=== PATIENT | male | born 1980 | race Caucasian/White ===

== ENCOUNTER 2020-11-19 15:03 | Outpatient (CLI) | payer OTHER | END 2020-11-19 15:04 | disposition home or self-care (01) | LOC: COV 15:03 | PROVIDERS: ATTEND Family Medicine | DX: R53.83 Other fatigue (principal); J02.9 Acute pharyngitis, unspecified; Z20.828 Contact with and (suspected) exposure to other viral communicable diseases ==

== ENCOUNTER 2022-11-11 13:39 | Outpatient (CLI) | payer OTHER ==
--- NOTE | 2022-11-11 15:16 | Ultrasound Report ---
PROCEDURE: Testicle INDICATIONS: Bilateral testicular pain, right greater than left. Mass. TECHNIQUE: Real-time scanning was performed of the scrotum and testicles, with image documentation. Color and p ulse Doppler interrogation was performed of both testicles. COMPARISON: None. FINDINGS: Right: Right testicle measures 4.1 x 2 x 2.9 cm. Overall echotexture is homogenous. Color and spectra l flows are documented. No hydrocele. Epididymal head cyst versus spermatocele measuring up to 12 mm. Normal appearance of the epididymis otherwise, which is larger than the left side, probably chronic. Varicocele is present, possibly thrombosed. Possible small right scrotolith about 2 mm. Left: Left testicle measures 4.1 x 1.9 x 2.7 cm. Echotexture is homogenous. Color and spectral flows are documented. No hydrocele. Left epididymis appears smaller than the right, probably chronic. Small epididymal head cyst measuring 4 x 3 mm. There is a left varicocele. IMPRESSION: Bilateral varicoceles. Bilateral epididymal head cysts, larger on the right. No evidence of acute torsion. No increased vascularity to suggest epididymitis. Reviewed by: Michael Hensley MD on 11/11/2022 2:15 PM [place] Approved by: Michael Hensley MD on 11/11/2022 2:15 PM [place] Station ID: [id number]
== END 2022-11-11 13:40 | disposition home or self-care (01) ==
LOC: DI 13:39
PROVIDERS: ATTEND Registered Nurse
DX: I86.1 Scrotal varices (principal); N50.3 Cyst of epididymis

== ENCOUNTER 2022-11-13 09:21 | Outpatient (CLI) | payer OTHER ==
[2022-11-13 14:57] LABS: BASOPHILS % (AUTO) 0.8 %; EOSINOPHILS # (AUTO) 0.1 10^3/uL (0.0-0.7); EOSINOPHILS % (AUTO) 3.4 %; HCT - HEMATOCRIT 45.7 % (42.0-52.0); HGB - HEMOGLOBIN 15.3 g/dL (14.0-18.0); LYMPHOCYTES % (AUTO) 29.5 %; MEAN CORPUSCULAR HEMOGLOBIN 28.7 pg (27.0-31.0); MEAN CORPUSCULAR HGB CONC 33.5 g/dL (32.0-36.0); MEAN CORPUSCULAR VOLUME 85.7 fL (80.0-94.0); MEAN PLATELET VOLUME 9.6 fL (7.4-11.4); MONOCYTES # (AUTO) 0.2 10^3/uL (0.0-1.0); MONOCYTES % (AUTO) 6.2 %; NEUTROPHILS # (AUTO) 2.1 10^3/uL (1.5-6.6); NEUTROPHILS % (AUTO) 59.8 %; PLT - PLATELET COUNT 201 10^3/uL (130-450); RED BLOOD COUNT 5.33 10^6/uL (4.70-6.10); RED CELL DISTRIBUTION WIDTH 13.1 % (12.0-15.0); WHITE BLOOD COUNT 3.5 x10^3/uL (4.8-10.8)
== END 2022-11-13 09:22 | disposition home or self-care (01) ==
LOC: LAB.S 09:21
PROVIDERS: ATTEND Registered Nurse
DX: N50.9 Disorder of male genital organs, unspecified (principal)
CPT/HCPCS: 36415; 84153; 85025